=== PATIENT | female | born 1955 | race Caucasian/White ===

== ENCOUNTER 2021-05-29 08:00 | Outpatient (CLI) | payer OTHER, MEDICARE ==
[2021-05-29 21:03] LABS: BASOPHILS # (AUTO) 0.1 10^3/uL (0.0-0.1); BASOPHILS % (AUTO) 0.7 %; EOSINOPHILS # (AUTO) 0.1 10^3/uL (0.0-0.7); EOSINOPHILS % (AUTO) 1.1 %; HCT - HEMATOCRIT 41.1 % (37.0-47.0); HGB - HEMOGLOBIN 13.2 g/dL (12.0-16.0); LYMPHOCYTES # (AUTO) 2.4 10^3/uL (1.5-3.5); LYMPHOCYTES % (AUTO) 28.5 %; MEAN CORPUSCULAR HEMOGLOBIN 31.4 pg (27.0-31.0); MEAN CORPUSCULAR HGB CONC 32.1 g/dL (32.0-36.0); MEAN CORPUSCULAR VOLUME 97.6 fL (81.0-99.0); MEAN PLATELET VOLUME 12.7 fL (7.9-10.8); MONOCYTES # (AUTO) 0.6 10^3/uL (0.0-1.0); MONOCYTES % (AUTO) 7.5 %; NEUTROPHILS # (AUTO) 5.2 10^3/uL (1.5-6.6); NEUTROPHILS % (AUTO) 61.7 %; PLT - PLATELET COUNT 236 10^3/uL (130-450); RED BLOOD COUNT 4.21 10^6/uL (4.20-5.40); RED CELL DISTRIBUTION WIDTH 12.5 % (12.0-15.0); WHITE BLOOD COUNT 8.4 x10^3/uL (4.8-10.8)
[2021-05-29 21:16] LABS: ALBUMIN 4.6 g/dL (3.2-5.5); ALBUMIN/GLOBULIN RATIO 1.3 (1.0-2.2); BILIRUBIN,TOTAL 0.5 mg/dL (0.2-1.0); CALCIUM 9.6 mg/dL (8.5-10.3); CREATININE 1.4 mg/dL (0.4-1.0); POTASSIUM 4.1 mmol/L (3.5-5.0); TOTAL PROTEIN 8.1 g/dL (6.7-8.2)
[2021-05-29 21:31] LABS: THYROID STIMULATING HORMONE 2.48 uIU/mL (0.34-5.60)
== END 2021-05-29 23:59 | disposition home or self-care (01) ==
LOC: LAB.N 08:00
PROVIDERS: ATTEND Family Medicine
DX: I10 Essential (primary) hypertension (principal)
CPT/HCPCS: 36415; 80053; 84443; 85025; 87086

== ENCOUNTER 2021-10-15 15:16 | Outpatient (CLI) | payer MEDICARE, OTHER ==
--- NOTE | 2021-10-16 15:16 | DEXA Report ---
PROCEDURE: Dexa Spine and/or Hip INDICATIONS: OSTEOPOROSIS TECHNIQUE: Dual energy x-ray absorptiometry (DXA) was performed on a [employer] System. Regions measur ed are the AP Spine, femoral neck, and if needed forearm. COMPARISON: None. FINDINGS: Lumbar Spine: Bone Mineral Density 1.009 g/cm/cm,T score -1.4, osteopenia Left Femoral Neck: Bone Mineral Density 0.773 g/cm/cm, T score -1.9, osteopenia. Total: Bone Mineral Density 0.870 g/cm/cm, T score -1.1, osteopenia (T score greater or equal to -1.0: NORMAL) (T score from -1.1 to -2.4: OSTEOPENIA) (T score less than or equal to -2.5 to: OSTEOPOROSIS) Impression: Bone mineral density as detailed above. Patients with diagnosis of osteoporosis or osteopenia should have regular bone mineral density assess ment. For those eligible for Medicare, routine testing is allowed once every 2 years. Testing frequ ency can be increased for patients who have rapidly progressing disease or for those who are receivin g medical therapy to restore bone mass. Reviewed by: Anuel Rick MD on 10/16/2021 3:15 PM PST Approved by: Anuel Rick MD on 10/16/2021 3:15 PM PST Station ID: [id number]
== END 2021-10-15 15:17 | disposition home or self-care (01) ==
LOC: DI 15:16
PROVIDERS: ATTEND Internal Medicine
DX: M81.0 Age-related osteoporosis without current pathological fracture (principal); M85.89 Other specified disorders of bone density and structure, multiple sites

== ENCOUNTER 2022-12-04 15:11 | Outpatient (CLI) | payer MEDICARE ==
--- NOTE | 2022-12-04 18:10 | CT Report ---
PROCEDURE: HEAD WO INDICATIONS: RIVAS TECHNIQUE: Noncontrast 4.5 mm thick angled axial sections acquired from the foramen magnum to the vertex. For r adiation dose reduction, the following was used: automated exposure control, adjustment of mA and/or kV according to patient size. COMPARISON: None. FINDINGS: Image quality: Excellent. CSF spaces: Basal cisterns are patent. No extra-axial fluid collections. Ventricles are normal in size and shape. Brain: No midline shift. No intracranial masses or hemorrhage. Payton-white matter interface is norm al. Skull and face: Calvarium and visualized facial bones are intact, without suspicious lesions. Incide ntal note made of hyperostosis frontalis. Sinuses: Visualized sinuses and mastoids are clear. IMPRESSION: No evidence acute intracranial abnormality. Reviewed by: Burke Lantigua MD on 12/04/2022 6:09 PM PDT Approved by: Burke Lantigua MD on 12/04/2022 6:09 PM PDT Station ID: [id number]
== END 2022-12-04 15:12 | disposition home or self-care (01) ==
LOC: DI 15:11
PROVIDERS: ATTEND Physician Assistant
DX: R51.9 Headache, unspecified (principal)

== ENCOUNTER 2023-12-30 09:30 | Outpatient (CLI) | payer MEDICARE ==
--- NOTE | 2023-12-30 13:50 | DEXA Report ---
PROCEDURE: Dexa Spine and/or Hip INDICATIONS: SMOKER, POST MENOPAUSAL TECHNIQUE: Dual energy x-ray absorptiometry (DXA) was performed on a [employer] System. Regions measur ed are the AP Spine, femoral neck, and if needed forearm. COMPARISON: 10/15/2021 FINDINGS: Lumbar Spine: Bone Mineral Density: 1.049 g/cm/cm,T score: -1.1. Since the most recent prior study, there has been a statistically significant increase in bone mineral density by 4 percent. Left Femoral Neck: Bone Mineral Density: 0.804 g/cm/cm, T score: -1.7. Left Hip: Bone Mineral Density: 0.860 g/cm/cm,T score: -1.2. There has been no statistically significant change in bone mineral density since the prior study. (T score greater or equal to -1.0: NORMAL) (T score from -1.1 to -2.4: OSTEOPENIA) (T score less than or equal to -2.5 to: OSTEOPOROSIS) Impression: By WHO criteria, this patient has low bone density (osteopenia). Interval statistical increase in bone mineral density of the lumbar spine. No statistical interval ch toni in bone mineral density of the hip. Patients with diagnosis of osteoporosis or osteopenia should have regular bone mineral density assess ment. For those eligible for Medicare, routine testing is allowed once every 2 years. Testing frequ ency can be increased for patients who have rapidly progressing disease or for those who are receivin g medical therapy to restore bone mass. Reviewed by: Trevor Morales MD on 12/30/2023 1:49 PM PDT Approved by: Trevor Morales MD on 12/30/2023 1:49 PM PDT Station ID: [id number]
--- NOTE | 2023-12-30 14:02 | CT Report ---
PROCEDURE: Lung Cancer Screen INDICATIONS: SMOKER, POST MENOPAUSAL TECHNIQUE: A CT scan of the chest was performed. Intravenous contrast media was not administered. Images were re corded and evaluated at appropriate window settings. Reformats: axial MIP of the chest, coronal and s agittal. For radiation dose reduction, the following was used: automated exposure control, adjustment of mA and/or kV according to patient size. COMPARISON: No relevant comparisons at time of dictation. FINDINGS: Image quality: Excellent. Prior cancer history: Unsure. Lungs and pleura: No pleural effusions. No pneumothorax. No suspicious pulmonary nodules which requi re follow up. Moderate centrilobular emphysema. Scattered calcified granuloma. Mediastinum: Heart size is normal. No pericardial effusion. No large vessel abnormality. No mediastin al adenopathy by size criteria. Two vessel coronary artery calcifications. Small hiatal hernia conta ining fat. Chest wall and lower neck: 1.4 cm right thyroid nodule; no follow-up per consensus guidelines based o n size criteria. No axillary or supraclavicular adenopathy by size. Bones: No aggressive osseous abnormality. Posterior bridging osteophyte at T9-10, resulting in mild s [place] canal narrowing. Upper Abdomen: Unremarkable. IMPRESSION: Lung RAD: 1 - Negative. Recommendation: Continue annual screening in 12 Months with LDCT Non-Lung Significant Findings: Coronary Arterial Calcification - Moderate or Severe. Consider cardiol ogy referral. Reviewed by: Trevor Morales MD on 12/30/2023 2:00 PM PDT Approved by: Trevor Morales MD on 12/30/2023 2:00 PM PDT Station ID: [id number]
== END 2023-12-30 09:31 | disposition home or self-care (01) ==
LOC: DI 09:30
PROVIDERS: ATTEND Physician Assistant
DX: Z12.2 Encounter for screening for malignant neoplasm of respiratory organs (principal); M85.89 Other specified disorders of bone density and structure, multiple sites; I25.10 Atherosclerotic heart disease of native coronary artery without angina pectoris; F17.210 Nicotine dependence, cigarettes, uncomplicated

== ENCOUNTER 2023-12-30 09:32 | Outpatient (CLI) | payer MEDICARE ==
--- NOTE | 2023-12-31 09:33 | Mammography Report ---
BILATERAL DIGITAL SCREENING MAMMOGRAM 3D/2D: 12/30/2023 CLINICAL: Routine screening. Comparison is made to exam dated: 02/20/2022 mammogram - [facility]. There are scattered areas of fibroglandular density in both breasts (category b / 25%-50% glandular t issue). There are benign calcifications in both breasts. No significant masses, calcifications, or other findings are seen in either breast. There has been no significant interval change. IMPRESSION: BENIGN There is no mammographic evidence of malignancy. A 1 year screening mammogram is recommended. Based on the Tyrer Cuzick model (a risk assessment model) the patient's lifetime risk is 3.0% and her 10 year risk is 1.6%. According to the ACR, ACS, and NCCN guidelines, an annual breast MRI exam monica g with mammogram is recommended if the patient's lifetime risk is 20% or greater. This exam was interpreted at Station ID: [id number]. NOTE: For mammograms, a report in lay terms will be sent to the patient. Approximately 15% of breast malignancies will not be visualized mammographically. In the management of a palpable breast mass, a negative mammogram must not discourage biopsy of a clinically suspicious lesion. Electronically Signed By: Ashley payne/britni:12/30/2023 12:18:12 letter sent: No_Letter ACR BI-RADS Category 2: Benign Finding(s) 3342F PARENCHYMAL PATTERN: (A) - The breast(s) demonstrate(s) scattered fibroglandular densities. BI-RADS CATEGORY: (2) - 2 RECOMMENDATION: (ANNUAL) - Recommend routine annual screening mammography. [id number] 1 year screening LATERALITY: (B)
== END 2023-12-30 09:33 | disposition home or self-care (01) ==
LOC: DI 09:32
PROVIDERS: ATTEND Physician Assistant
DX: Z12.31 Encounter for screening mammogram for malignant neoplasm of breast (principal); R92.323 Mammographic fibroglandular density, bilateral breasts

== ENCOUNTER 2024-04-12 13:18 | Outpatient (CLI) | payer MEDICARE ==
[2024-04-12] MEDS: ALBUTEROL 1 PUFF INH STA (14:55)
== END 2024-04-12 13:19 | disposition home or self-care (01) ==
LOC: RT 13:18
PROVIDERS: ATTEND Physician Assistant
DX: J43.9 Emphysema, unspecified (principal); Z87.891 Personal history of nicotine dependence
CPT/HCPCS: 94060; 94727; 94729

== ENCOUNTER 2024-05-25 10:12 | Outpatient (CLI) | payer MEDICARE ==
--- NOTE | 2024-05-25 17:19 | XRAY Report ---
PROCEDURE: Foot 3+V BL INDICATIONS: BILATERAL FOOT PAIN TECHNIQUE: AP, lateral, and oblique views of the feet COMPARISON: None. FINDINGS: Right foot: No acute fracture or dislocation. Mild hallux valgus with lateralization of the hallux se samoids. Mild 1st MTP osteoarthritis. Otherwise, the joint spaces are preserved. The Lisfranc interva l is preserved on the nonweightbearing view. Mild osseous demineralization. No osseous erosions. Left foot: No acute fracture or dislocation. Mild hallux valgus with lateralization of the hallux ses amoids. Mild 1st MTP osteoarthritis with a small calcification at the medial MTP joint. The Lisfranc interval is preserved on the nonweightbearing view. Mild osseous demineralization. No osseous erosion s. 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 Reviewed by: Dameon Alatorre MD on 05/25/2024 5:18 PM PDT Approved by: Dameon Alatorre MD on 05/25/2024 5:18 PM PDT Station ID: [id number]
== END 2024-05-25 10:13 | disposition home or self-care (01) ==
LOC: DI 10:12
PROVIDERS: ATTEND Student in an Organized Health Care Education/Training Program
DX: M19.072 Primary osteoarthritis, left ankle and foot (principal); M19.071 Primary osteoarthritis, right ankle and foot